=== PATIENT | female | born 2000 | race Caucasian/White ===

== ENCOUNTER → 2024-04-14 | Outpatient (CLI) | payer OTHER ==
[2024-04-14 14:47] LABS: HEMATOCRIT 36.6 % (36.0-47.0); HEMOGLOBIN 12.4 g/dl (12.0-15.5); MEAN CORPUSCULAR HGB CONC 33.9 g/dl (32.0-36.5); MEAN CORPUSCULAR VOLUME 91.5 fl (80.0-96.0); PLATELET COUNT, AUTOMATED 140 10^3/uL (150-450); WHITE BLOOD COUNT 6.2 10^3/uL (4.0-10.0)
[2024-04-14 15:39] LABS: HIV 1&2 SCREEN NEGATIVE (NEGATIVE)
[2024-04-14 15:47] LABS: HEPATITIS C VIRUS ABY INDEX < 0.02 INDEX (<0.8)
[2024-04-14 16:07] LABS: GC DNA AMPLIFICATION NEGATIVE (NEGATIVE)
== END ==
LOC: M PLALAB 11:34
PROVIDERS: ATTEND Obstetrics & Gynecology
DX: Z34.81 Encounter for supervision of other normal pregnancy, first trimester (principal)

== ENCOUNTER → 2024-06-09 | Outpatient (CLI) | payer OTHER | LOC: M RAD 16:25 | PROVIDERS: ATTEND Obstetrics & Gynecology | DX: Z34.82 Encounter for supervision of other normal pregnancy, second trimester (principal) ==

== ENCOUNTER → 2024-07-20 | Outpatient (CLI) | payer OTHER ==
[2024-07-20 14:14] LABS: HEMATOCRIT 33.1 % (36.0-47.0); HEMOGLOBIN 11.1 g/dl (12.0-15.5); MEAN CORPUSCULAR HEMOGLOBIN 32.3 pg (27.0-33.0); MEAN CORPUSCULAR HGB CONC 33.5 g/dl (32.0-36.5); MEAN CORPUSCULAR VOLUME 96.2 fl (80.0-96.0); PLATELET COUNT, AUTOMATED 174 10^3/uL (150-450); RED BLOOD COUNT 3.44 10^6/uL (4.00-5.40); WHITE BLOOD COUNT 12.5 10^3/uL (4.0-10.0)
[2024-07-20 14:30] LABS: GLUCOSE CHALLENGE TEST 1 HOUR 93 MG/DL (LESS THAN 140)
[2024-07-20 14:55] LABS: HIV 1&2 SCREEN NEGATIVE (NEGATIVE)
[2024-07-20 15:03] LABS: HEPATITIS C VIRUS ABY INDEX 0.03 INDEX (<0.8)
[2024-07-20 15:19] LABS: Trichomonas vaginalis (AMP) NOT DETECTED (NEGATIVE)
[2024-07-20 15:43] LABS: GC DNA AMPLIFICATION NEGATIVE (NEGATIVE)
== END ==
LOC: M PLALAB 10:06
PROVIDERS: ATTEND Obstetrics & Gynecology
DX: Z34.92 Encounter for supervision of normal pregnancy, unspecified, second trimester (principal)

== ENCOUNTER → 2024-07-23 | Outpatient (CLI) | payer OTHER | LOC: M WHC 11:59 | PROVIDERS: ATTEND Nurse Practitioner Family | DX: Z34.80 Encounter for supervision of other normal pregnancy, unspecified trimester (principal) ==

== ENCOUNTER → 2024-10-14 | Outpatient (CLI) | payer OTHER ==
[~2024-10-14] MED LIST: PRENTAB9 PO
[2024-10-14 10:40] LABS: PLATELET COUNT, AUTOMATED 183 10^3/uL (150-450)
[2024-10-14 11:03] LABS: LDH LACTATE DEHYDROGENASE 168 U/L (120-246)
[2024-10-14 11:04] LABS: ALT/SGPT 18 U/L (7.0-40); AST/SGOT 21 U/L (<34); CREATININE FOR GFR 0.68 MG/DL (0.55-1.30); GLOMERULAR FILTRATION RATE > 90.0 (>60)
[2024-10-14 14:33] LABS: TOTAL PROTEIN,RANDOM URINE 44.7 MG/DL (0.0-14.0)
== END ==
LOC: M PLALAB 09:09
PROVIDERS: ATTEND Nurse Practitioner Family
DX: O16.3 Unspecified maternal hypertension, third trimester (principal)

== ENCOUNTER 2024-10-15 14:26 | Outpatient (CLI) | payer OTHER ==
[~2024-10-15] VITALS: Ht 160 cm; Wt 84.0 kg
[2024-10-15] VITALS (8 sets, daily range): BP systolic 119–137; BP diastolic 77–86
[2024-10-15] MEDS ORDERED: PRENTAB9 PO (14:35)
[2024-10-15] MEDS ORDERED: HOME MED LIST COMPLETE! XX SCH (14:40)
[2024-10-15 15:54] LABS: TOTAL PROTEIN,RANDOM URINE 41.1 MG/DL (0.0-14.0)
== END 2024-10-15 17:47 | disposition home or self-care (01) ==
LOC: M LDO 14:26
PROVIDERS: ATTEND Obstetrics & Gynecology
DX: O13.3 Gestational [pregnancy-induced] hypertension without significant proteinuria, third trimester (principal); Z3A.38 38 weeks gestation of pregnancy
CPT/HCPCS: 59025; 82570; 84156; G0463

== ENCOUNTER 2024-10-20 18:44 | Inpatient (IN) | payer OTHER ==
[~2024-10-20] VITALS: Ht 160 cm; Wt 83.9 kg
[2024-10-20] VITALS (23 sets, daily range): BP systolic 127–157; BP diastolic 64–96
[2024-10-20] MEDS ORDERED: METHYLERGONOVINE MALEATE 0.2 MG/ML 1 ML VIAL IM PRN (19:15)
[2024-10-20] MEDS ORDERED: LIDOCAINE 1% MDV 20 ML VIAL INFIL PRN (19:15)
[2024-10-20] MEDS ORDERED: CARBOPROST TROMETHAMINE 250 MCG/ML AMP IM PRN (19:15)
[2024-10-20] MEDS ORDERED: TRANEXAMIC ACID INJection 1,000 MG in NS 100 ML IV PRN (19:15)
[2024-10-20] MEDS ORDERED: HOME MED LIST COMPLETE! XX SCH (19:45)
[2024-10-20] MEDS ORDERED: ONDANSETRON 4MG 2ML VIAL IV PRN (19:50)
[2024-10-20] MEDS ORDERED: diphenhydrAMINE 50 MG/ML VIAL IV PRN (19:50)
[2024-10-20] MEDS ORDERED: NALOXONE INJ 0.4 MG/1 ML VIAL IV PRN (19:50)
[2024-10-20] MEDS ORDERED: EPIDURAL/PCA KEYS XX PRN (19:50)
[2024-10-20 19:54] LABS: PLATELET COUNT, AUTOMATED 185 10^3/uL (150-450)
[2024-10-20] MEDS: LR 500 ML IV PRN (20:11)
[2024-10-20 20:34] LABS: HIV 1&2 SCREEN NEGATIVE (NEGATIVE)
[2024-10-20 20:41] LABS: HEPATITIS C VIRUS ABY INDEX < 0.02 INDEX (<0.8)
[2024-10-20] MEDS: FENTANYL/ROPIVACAINE/NACL BAG 100 ML EPIDURAL SCH (20:54)
[2024-10-20] MEDS: LR 1,000 ML IV SCH (22:41)
[2024-10-21] VITALS (27 sets, daily range): BP systolic 93–145; BP diastolic 55–86; O2SAT 97–99
[2024-10-21] MEDS: OXYTOCIN DRIP 30 UNITS in IV 1 EA IV PRN (06:25)
[2024-10-21] MEDS ORDERED: METHYLERGONOVINE MALEATE 0.2 MG TAB PO PRN (06:45)
[2024-10-21] MEDS ORDERED: ACETAMINOPHEN 325 MG TAB PO PRN (06:45)
[2024-10-21] MEDS ORDERED: IBUPROFEN 600 MG TAB PO PRN (06:45)
[2024-10-21] MEDS ORDERED: RHOGAM 300MCG (1500IU) INJ IM SCH (06:45)
[2024-10-21] MEDS ORDERED: DOCUSATE SODIUM 100 MG CAPSULE PO PRN (06:45)
[2024-10-21] MEDS ORDERED: MOM 30 ML SUSPENSION UDC PO PRN (06:45)
[2024-10-21] MEDS ORDERED: CALCIUM CARBONATE 500 MG CHEW U/D PO PRN (06:45)
[2024-10-21] MEDS: ACETAMINOPHEN 500 MG TAB PO PRN (07:10)
[2024-10-21] MEDS: IBUPROFEN 800 MG TAB PO PRN (07:11)
[2024-10-21] MEDS: OXYTOCIN DRIP 30 UNITS in IV 1 EA IV SCH (07:11)
[2024-10-21] MEDS: DIBUCAINE 1% OINTMENT 30 GM TOP PRN (09:53)
[2024-10-21] MEDS: PRENATAL VITAMINS CHEWABLE TABLET PO SCH (09:53)
[2024-10-21] MEDS: ANUSOL HC CREAM 30 GM TOP PRN (17:58)
[2024-10-22 05:58] VITALS: BP 133/83; O2SAT 98
[2024-10-23] MEDS ORDERED: MEASLES,MUMPS,RUBELLA VACCINE INJ (MMR-II) SC.IMMUN ONE (09:00)
== END 2024-10-22 12:02 | disposition home or self-care (01) | DRG 807 ==
LOC: M LDO 18:44 → M LDI 19:09 → M OBS 10-21 09:00
PROVIDERS: ADMIT Obstetrics & Gynecology; ATTEND Obstetrics & Gynecology
PROC: 10E0XZZ Delivery of Products of Conception, External Approach (ICD-10-PCS; principal; 2024-10-21)
PROC: 0KQM0ZZ Repair Perineum Muscle, Open Approach (ICD-10-PCS; 2024-10-21)
DX: O70.1 Second degree perineal laceration during delivery (principal); Z37.0 Single live birth; Z3A.39 39 weeks gestation of pregnancy